=== PATIENT | female | born 1945 | race Caucasian/White ===

== ENCOUNTER 2024-08-06 19:40 | Observation (INO) | payer MEDICARE ==
--- NOTE | 2024-08-06 20:15 | ED ---
General Adult HPI - General Chief complaint: Chest Pain Stated complaint: Chest pain Time Seen by Provider: 08/06/24 19:45 Source: patient, EMS, RN notes reviewed, old records reviewed Mode of arrival: EMS Limitations: no limitations - History of Present Illness Initial comments: This is a 78-year-old female with a past medical history significant for high blood pressure high cholesterol and atrial fibrillation. Patient states she started having chest pain today and thought it was her A-fib acting up even though her heart rate was only 90. Patient states her blood pressure was a little elevated of 150/120 so she took another beta-ty and came to the hospital. Patient states on the way end gave her nitroglycerin and that seemed to help with the pain. Patient states she was very hot when she had the pain but she was not short of breath and she denies radiation of the pain. Patient states she was definitely nauseous and they gave her Zofran on the way in and that helped as well. Patient also was given 4 aspirin. - Related Data Allergies Allergy/AdvReac Type Severity Reaction Status Date / Time amiodarone Allergy Unknown Verified 08/06/24 19:43 azithromycin Allergy Diarrhea Verified 08/06/24 19:43 losartan Allergy Swelling Verified 08/06/24 19:43 Review of Systems ROS Statement: Those systems with pertinent positive or pertinent negative responses have been documented in the HPI. ROS Other: All systems not noted in ROS Statement are negative. Past Medical History Past Medical History: Atrial Fibrillation, Cancer, Hypertension, Thyroid Disorder Additional Past Medical History / Comment(s): UC, right breast CA History of Any Multi-Drug Resistant Organisms: None Reported Past Surgical History: Hysterectomy, Joint Replacement, Orthopedic Surgery Additional Past Surgical History / Comment(s): right breast , lumpectomy Past Psychological History: No Psychological Hx Reported Smoking Status: Former smoker Past Alcohol Use History: Daily Past Drug Use History: None Reported General Exam - General Exam Comments Initial Comments: GENERAL: Patient is well-developed and well-nourished. Patient is nontoxic and well- hydrated and is in mild distress. ENT: Neck is soft and supple. No significant lymphadenopathy is noted. Oropharynx is clear. Moist mucous membranes. Neck has full range of motion without eliciting any pain. EYES: The sclera were anicteric and conjunctiva were pink and moist. Extraocular movements were intact and pupils were equal round and reactive to light. Eyelid s were unremarkable. PULMONARY: Unlabored respirations. Good breath sounds bilaterally. No audible rales rhonchi or wheezing was noted. CARDIOVASCULAR: Patient's heart rates about 75 beats a minute and irregular ABDOMEN: Soft and nontender with normal bowel sounds. SKIN: Skin is clear with no lesions or rashes and otherwise unremarkable. NEUROLOGIC: Patient is alert and oriented x3. Cranial nerves II through XII are grossly intact. Motor and sensory are also intact. Normal speech, volume and content. Symmetrical smile. MUSCULOSKELETAL: Normal extremities with adequate strength and full range of motion. LYMPHATICS: No significant lymphadenopathy is noted PSYCHIATRIC: Normal psychiatric evaluation. Limitations: no limitations Course Vital Signs 08/06/24 08/06/24 08/06/24 19:44 20:35 21:19 Temperature 98.1 F Pulse Rate 94 81 75 Respiratory 18 18 18 Rate Blood Pressure 172/78 166/98 178/104 O2 Sat by Pulse 97 96 95 Oximetry Medical Decision Making - Medical Decision Making EKG is interpreted by myself. EKG shows atrial fibrillation at 84 bpm QRS is 84 QT interval is 377 QTc is 418. Patient's EKG shows no ST segment elevation or depression Was pt. sent in by a medical professional or institution (, PA, HOME AID, urgent care, hospital, or intermediate...) When possible be specific @ -No Did you speak to anyone other than the patient for history (EMS, parent, family, police, friend...)? What history was obtained from this source @ -No Did you review nursing and triage notes (agree or disagree)? Why? @ -I reviewed and agree with nursing and triage notes Were old charts reviewed (outside hosp., previous admission, EMS record, old EKG, old radiological studies, urgent care reports/EKG's, intermediate records)? Report findings @ -No old charts were reviewed Differential Diagnosis? @ -Differential Chest Pain: Stable Angina, Unstable Angina, STEMI, NSTEMI Aortic Dissection, Pneumothorax, Musculoskeletal, Esophageal Spasm GERD, Cholecystitis, Pancreatitis, Zoster, this is not meant to be an all-inclusive list. EKG interpreted by me (3pts min.). @ -As above X-rays interpreted by me (1pt min.). @ -Chest x-ray shows no acute abnormality CT interpreted by me (1pt min.). @ -None done U/S interpreted by me (1pt. min.). @ -None done What testing was considered but not performed or refused? (CT, X-rays, U/S, labs)? Why? @ -None What meds were considered but not given or refused? Why? @ -None Did you discuss the management of the patient with other professionals (professionals i.e. , PA, HOME AID, lab, RT, psych nurse, socially responsible investment adviser, ordnance corps officer, teacher, navy senior officer, rn case manager)? Give summary @ -I spoke with Dr. Perkins and he agreed to admit the patient. Was smoking cessation discussed for >3mins.? @ -No Was critical care preformed (if so, how long)? @ -No Were there social determinants of health that impacted care today? How? (Homelessness, low income, unemployed, alcoholism, drug addiction, t ransportation, low edu. Level, literacy, decrease access to med. care, fci, rehab)? @ -No Was there de-escalation of care discussed even if they declined (Discuss DNR or withdrawal of care, Hospice)? DNR status @ -No What co-morbidities impacted this encounter? (DM, HTN, Smoking, COPD, CAD, Cancer, CVA, ARF, Chemo, Hep., AIDS, mental health diagnosis, sleep apnea, morbid obesity)? @ -None Was patient admitted / discharged? Hospital course, mention meds given and route, prescriptions, significant lab abnormalities, going to OR and other pertinent info. @ -Patient had nitroglycerin en route which helped with her pain considerably. Patient was given Nitropaste here she already had aspirin en route as well. Patient continued be slightly nauseous when she arrived she was given 4 more of Zofran and given Ativan to relax her. Patient was also given her nighttime dose of hydralazine. Patient was feeling considerably better at time of admission I will admit the patient to Dr. Marquez and consult cardiology Undiagnosed new problem with uncertain prognosis? @ -No Drug Therapy requiring intensive monitoring for toxicity (Heparin, Nitro, Insulin, Cardizem)? @ -No Were any procedures done? @ -No Diagnosis/symptom? @ -Chest pain Acute, or Chronic, or Acute on Chronic? @ -Acute Uncomplicated (without systemic symptoms) or Complicated (systemic symptoms)? @ -Complicated Side effects of treatment? @ -No Exacerbation, Progression, or Severe Exacerbation? @ -No Poses a threat to life or bodily function? How? (Chest pain, [place], [place], pneumonia, PE, COPD, DKA, ARF, appy, cholecystitis, CVA, Diverticulitis, Homicidal, Suicidal, threat to staff... and all critical care pts) @ -Yes this could lead to an KS and endorgan dysfunction - Lab Data Result diagrams: 08/06/24 19:55 08/06/24 19:55 Lab Results 08/06/24 08/06/24 08/06/24 Range/Units 19:55 19:55 19:55 WBC 5.98 (4.50-10.00) 10*3/uL RBC 3.92 L (4.10-5.20) 10*6/uL Hgb 12.5 (12.0-15.0) g/dL Hct 36.6 L (37.2-46.3) % MCV 93.4 (80.0-97.0) fL MCH 31.9 (27.0-32.0) pg MCHC 34.2 (32.0-37.0) g/dL Plt Count 224 (140-440) 10*3/uL MPV 9.2 L (9.5-12.2) fL Immature Gran % (Auto) 0.7 % Neutrophils % 58.8 % Lymphocytes % 27.3 % Monocytes % 10.0 % Eosinophils % 2.5 % Basophils % 0.7 % Immature Gran # 0.04 (0.00-0.04) 10*3/uL Neutrophils # 3.52 (1.80-7.70) 10*3/uL Lymphocytes # 1.63 (0.90-5.00) 10*3/uL Monocytes # 0.60 (0.20-1.00) 10*3/uL Eosinophils # 0.15 (0.04-0.35) 10*3/uL Basophils # 0.04 (0.00-0.10) 10*3/uL PT 10.7 (10.0-12.5) sec INR 1.0 (<1.2) APTT 27.4 (22.0-30.0) sec Sodium 139 (137-145) mmol/L Potassium 3.8 (3.5-5.1) mmol/L Chloride 104 (98-107) mmol/L Carbon Dioxide 27 (22-30) mmol/L Anion Gap 8 mmol/L BUN 22 H (7-17) mg/dL Creatinine 0.61 (0.52-1.04) mg/dL Est GFR (CKD-EPI)AfAm >90 (>60 ml/min/1.73 sqM) Est GFR (CKD-EPI)NonAf 87 (>60 ml/min/1.73 sqM) Glucose 155 H (74-99) mg/dL Calcium 9.4 (8.4-10.2) mg/dL Magnesium 1.8 (1.6-2.3) mg/dL Total Bilirubin 0.5 (0.2-1.3) mg/dL AST 29 (14-36) U/L ALT 15 (4-34) U/L Alkaline Phosphatase 78 (38-126) U/L Troponin I (0.000-0.034) ng/mL Total Protein 7.2 (6.3-8.2) g/dL Albumin 4.2 (3.5-5.0) g/dL /07/28 Range/Units 19:55 WBC (4.50-10.00) 10*3/uL RBC (4.10-5.20) 10*6/uL Hgb (12.0-15.0) g/dL Hct (37.2-46.3) % MCV (80.0-97.0) fL MCH (27.0-32.0) pg MCHC (32.0-37.0) g/dL Plt Count (140-440) 10*3/uL MPV (9.5-12.2) fL Immature Gran % (Auto) % Neutrophils % % Lymphocytes % % Monocytes % % Eosinophils % % Basophils % % Immature Gran # (0.00-0.04) 10*3/uL Neutrophils # (1.80-7.70) 10*3/uL Lymphocytes # (0.90-5.00) 10*3/uL Monocytes # (0.20-1.00) 10*3/uL Eosinophils # (0.04-0.35) 10*3/uL Basophils # (0.00-0.10) 10*3/uL PT (10.0-12.5) sec INR (<1.2) APTT (22.0-30.0) sec Sodium (137-145) mmol/L Potassium (3.5-5.1) mmol/L Chloride (98-107) mmol/L Carbon Dioxide (22-30) mmol/L Anion Gap mmol/L BUN (7-17) mg/dL Creatinine (0.52-1.04) mg/dL Est GFR (CKD-EPI)AfAm (>60 ml/min/1.73 sqM) Est GFR (CKD-EPI)NonAf (>60 ml/min/1.73 sqM) Glucose (74-99) mg/dL Calcium (8.4-10.2) mg/dL Magnesium (1.6-2.3) mg/dL Total Bilirubin (0.2-1.3) mg/dL AST (14-36) U/L ALT (4-34) U/L Alkaline Phosphatase (38-126) U/L Troponin I <0.012 (0.000-0.034) ng/mL Total Protein (6.3-8.2) g/dL Albumin (3.5-5.0) g/dL Disposition Clinical Impression: Chest pain Disposition: ADMITTED IP TO THIS HOSP Referrals: Niko Camilo MD [Primary Care Provider] - 1-2 days Time of Disposition: 21:39
[2024-08-06 20:24] LABS: Basophils # (A) 0.04 10*3/uL (0.00-0.10); Basophils % (A) 0.7 %; Eosinophils # (A) 0.15 10*3/uL (0.04-0.35); Eosinophils % (A) 2.5 %; HCT 36.6 % (37.2-46.3); HGB 12.5 g/dL (12.0-15.0); Lymphocytes # (A) 1.63 10*3/uL (0.90-5.00); Lymphocytes % (A) 27.3 %; MCH 31.9 pg (27.0-32.0); MCHC 34.2 g/dL (32.0-37.0); MCV 93.4 fL (80.0-97.0); Mean Platelet Volume 9.2 fL (9.5-12.2); Neutrophils # (A) 3.52 10*3/uL (1.80-7.70); Neutrophils % (A) 58.8 %; Platelet Count 224 10*3/uL (140-440); RBC 3.92 10*6/uL (4.10-5.20); RDW 14.2 % (11.5-14.5); WBC 5.98 10*3/uL (4.50-10.00)
[2024-08-06 20:38] LABS: Partial Thromboplastin Time 27.4 sec (22.0-30.0); Prothrombin Time 10.7 sec (10.0-12.5)
[2024-08-06 20:43] LABS: ALT 15 U/L (4-34); AST 29 U/L (14-36); African American GFR (CKD) >90 (>60 ml/min/1.73 sqM); Albumin 4.2 g/dL (3.5-5.0); Alkaline Phosphatase 78 U/L (38-126); Anion Gap 8 mmol/L; Blood Urea Nitrogen 22 mg/dL (7-17); Calcium 9.4 mg/dL (8.4-10.2); Carbon Dioxide 27 mmol/L (22-30); Chloride 104 mmol/L (98-107); Glucose 155 mg/dL (74-99); Magnesium 1.8 mg/dL (1.6-2.3); Non-African American GFR(CKD) 87 (>60 ml/min/1.73 sqM); Potassium 3.8 mmol/L (3.5-5.1); Sodium 139 mmol/L (137-145); Total Bilirubin 0.5 mg/dL (0.2-1.3); Total Protein 7.2 g/dL (6.3-8.2)
[2024-08-06] MEDS: NITROGLYCERIN OINT 1 INCH/GM PACKET TOPICAL STA (20:43)
--- NOTE | 2024-08-06 21:00 | XR ---
EXAMINATION TYPE: XR chest 2V DATE OF EXAM: 08/06/2024 8:55 PM COMPARISON: None. CLINICAL INDICATION: Female, 78 years old with history of Chest Pain: Shortness of breath TECHNIQUE: XR chest 2V views of the chest are obtained. FINDINGS: Scattered senescent parenchymal changes noted. Hyperinflation compatible with COPD. Scattered interstitial infiltrates. Correlate for developing pneumonia. Heart size is mildly enlarged. Mediastinal structures are stable and grossly unremarkable. No evidence for hilar prominence. Degenerative changes dorsal spine. IMPRESSION: 1. Scattered interstitial infiltrates. Correlate for developing pneumonia. [facility], , 08/06/2024 8:58 PM
[2024-08-06] MEDS: LORazepam 2 MG/ML INJ IV STA (21:33)
[2024-08-06] MEDS: hydrALAZINE HCL 25 MG TAB PO STA (21:35)
[2024-08-06] MEDS ORDERED: NITROGLYCERIN SL TABS 0.4 MG TAB SUBLINGUAL PRN (21:39)
[2024-08-06] MEDS: ZOLPIDEM 5 MG TAB PO SCH (22:34)
[2024-08-06] MEDS: APIXABAN 5 MG TAB PO SCH (22:34)
[2024-08-06] MEDS: METOPROLOL SUCCINATE (ER) 100 MG TAB.ER.24H PO SCH (22:35)
[2024-08-06] MEDS: ACETAMINOPHEN TAB 325 MG TAB PO PRN (23:07)
[2024-08-07] MEDS: NITROGLYCERIN OINT 1 INCH/GM PACKET TOPICAL SCH (03:36)
[2024-08-07] MEDS: ASPIRIN 325 MG TAB PO SCH (08:03)
[2024-08-07] MEDS: hydrALAZINE HCL 25 MG TAB PO SCH (08:04)
[2024-08-07] MEDS: FUROSEMIDE 20 MG TAB PO SCH (08:05)
[2024-08-07] MEDS: METOPROLOL SUCCINATE (ER) 100 MG TAB.ER.24H PO SCH (09:15)
--- NOTE | 2024-08-07 09:41 | XR ---
EXAMINATION TYPE: XR chest 2V DATE OF EXAM: 08/07/2024 9:29 AM COMPARISON: Chest radiographs from 08/06/2024 TECHNIQUE: XR chest 2V Frontal and lateral views of the chest. CLINICAL INDICATION:Female, 78 years old with history of cp, repeat developing pneumonia; FINDINGS: Lungs/Pleura: No pneumothorax or pleural effusion. Similar scattered interstitial opacities. Heart/mediastinum: Cardiomediastinal silhouette is enlarged and stable. Musculoskeletal: No acute osseous pathology. Right shoulder arthroplasty change. Other findings: Surgical clips within the right axilla. IMPRESSION: Cardiomegaly similar scattered interstitial opacities which may represent pulmonary vascular congesti on from CHF exacerbation versus atypical pneumonia. [facility], , 08/07/2024 9:39 AM
--- NOTE | 2024-08-07 10:35 | P.CRDCN ---
History of Present Illness History of present illness: HISTORY OF PRESENTING ILLNESS This is a pleasant 78-year-old female past medical history significant for persistent atrial fibrillation, hypertension and dyslipidemia. She follows in the office with Dr. Quintero. We have been asked to see in consultation for chest pain. She presented to the hospital with symptoms of hypertension at home. She also felt a vague sensation of palpitations and burning. No shortness of breath or dizziness. BP on arrival 172/78. Has remained elevated for the most part. DIAGNOSTICS EKG reveals atrial fibs heart rate of 84. Telemetry tracings indicate atrial fed with mostly controlled ventricular rate. Chest xray multiple interstitial infiltrates noted possibly related to developing pneumonia. Laboratory reviewed, WBC 5.9, hemoglobin 12.5, platelets 224, sodium 139, potassium 3.8, creatinine 0.61, magnesium 1.7, cardiac enzymes negative x 3. Current cardiac medications include Eliquis 80, hydralazine 50 mg 3 times daily, Lasix 20 mg daily and metoprolol succinate 100 mg daily. Most recent echocardiogram obtained in the office May 2024 revealed preserved LV systolic function with ejection fraction 55%, moderate to severe MR and moderate TR with an RVSP of 44. REVIEW OF SYSTEMS At the time of my exam: CONSTITUTIONAL: Denies fever or chills. CARDIOVASCULAR: Denies chest pain, shortness of breath, orthopnea, PND or palpitations. RESPIRATORY: Denies cough. GASTROINTESTINAL: Denies abdominal pain, diarrhea, constipation, nausea or vomiting. MUSCULOSKELETAL: Denies myalgias. NEUROLOGIC: Denies numbness, tingling, headache or weakness. ENDOCRINE: Denies fatigue, weight change, polydipsia or polyurina. GENITOURINARY: Denies burning, hematuria or urgency with micturation. HEMATOLOGIC: Denies history of anemia or bleeding. PHYSICAL EXAMINATION Blood pressure 148/91 heart rate 64 afebrile and maintaining oxygen saturation on room air. CONSTITUTIONAL: No apparent distress. HEENT: Head is normocephalic. Pupils are equal, round. Sclerae anicteric. Mucous membranes of the mouth are moist. No JVD. No carotid bruit. CHEST EXAMINATION: Lungs are clear to auscultation. No chest wall tenderness is noted on palpation or with deep breathing. HEART EXAMINATION: Irregular rate and rhythm. S1, S2 heard. No murmurs, gallops or rub. ABDOMEN: Soft, nontender. EXTREMITIES: 2+ peripheral pulses, no lower extremity edema and no calf tenderness. NEUROLOGIC EXAMINATION: Patient is awake, alert and oriented x3. ASSESSMENT Hypertension Persistent atrial fibrillation Dyslipidemia PLAN Repeat chest xray. An acute coronary event has been ruled out. Add amlodipine 5 mg at bedtime for better blood pressure control. Stable for discharge from a cardiac perspective, follow-up with Dr. Quintero in 2 weeks. Thank you kindly for this consultation. Nurse Practitioner note has been reviewed, I agree with a documented findings and plan of care. Patient was seen and examined. Past Medical History Past Medical History: Atrial Fibrillation, Cancer, Hyperlipidemia, Hypertension, Thyroid Disorder Additional Past Medical History / Comment(s): UC, right breast CA , ulcertive colotis, skin cancer, breast cancer, History of Any Multi-Drug Resistant Organisms: None Reported Past Surgical History: Hysterectomy, Joint Replacement, Orthopedic Surgery Additional Past Surgical History / Comment(s): right breast lumpectomy, lumbar decompression, right shoulder, right knee, Past Psychological History: No Psychological Hx Reported Smoking Status: Former smoker Past Alcohol Use History: Daily Past Drug Use History: None Reported Medications and Allergies Allergies Allergy/AdvReac Type Severity Reaction Status Date / Time amiodarone Allergy Unknown Verified 08/06/24 19:43 azithromycin Allergy Diarrhea Verified 08/06/24 19:43 losartan Allergy Swelling Verified 08/06/24 19:43 corn Allergy Unknown Uncoded 08/07/24 01:11 Physical Exam Vitals: Vital Signs Temp Pulse Pulse Resp BP BP Pulse Ox 08/07/24 07:00 97.9 F 64 17 148/91 97 08/07/24 00:05 97.7 F 75 18 138/76 95 08/06/24 23:00 75 18 138/82 94 L 08/06/24 21:19 75 18 178/104 95 08/06/24 20:35 81 18 166/98 96 08/06/24 19:44 98.1 F 94 18 172/78 97 Intake and Output 08/06/24 08/07/24 08/07/24 22:59 06:59 14:59 Other: # Voids 1 Weight 95.254 kg 95.254 kg Results 08/06/24 19:55 08/06/24 19:55 Cardiac Enzymes 08/06/24 08/06/24 08/07/24 Range/Units 19:55 19:55 00:31 AST 29 (14-36) U/L Troponin I <0.012 <0.012 (0.000-0.034) ng/mL 08/07/24 Range/Units 03:23 AST (14-36) U/L Troponin I <0.012 (0.000-0.034) ng/mL Coagulation 08/06/24 Range/Units 19:55 PT 10.7 (10.0-12.5) sec APTT 27.4 (22.0-30.0) sec CBC 08/06/24 Range/Units 19:55 WBC 5.98 (4.50-10.00) 10*3/uL RBC 3.92 L (4.10-5.20) 10*6/uL Hgb 12.5 (12.0-15.0) g/dL Hct 36.6 L (37.2-46.3) % Plt Count 224 (140-440) 10*3/uL Comprehensive Metabolic Panel 08/06/24 Range/Units 19:55 Sodium 139 (137-145) mmol/L Potassium 3.8 (3.5-5.1) mmol/L Chloride 104 (98-107) mmol/L Carbon Dioxide 27 (22-30) mmol/L BUN 22 H (7-17) mg/dL Creatinine 0.61 (0.52-1.04) mg/dL Glucose 155 H (74-99) mg/dL Calcium 9.4 (8.4-10.2) mg/dL AST 29 (14-36) U/L ALT 15 (4-34) U/L Alkaline Phosphatase 78 (38-126) U/L Total Protein 7.2 (6.3-8.2) g/dL Albumin 4.2 (3.5-5.0) g/dL Current Medications Generic Name Dose Route Start Last Admin Trade Name Freq PRN Reason Stop Dose Admin Acetaminophen 650 mg 08/06/24 22:55 08/07/24 08:03 Acetaminophen Tab 325 Mg Tab PO 650 mg Q6HR PRN Administration Fever and/ or Pain Amlodipine Besylate 5 mg 08/07/24 21:00 Amlodipine 5 Mg Tab PO HS RELL Apixaban 5 mg 08/06/24 21:45 08/07/24 09:02 Apixaban 5 Mg Tab PO 5 mg BID RELL Administration Protocol Furosemide 20 mg 08/08/24 09:00 Furosemide 20 Mg Tab PO DAILY RELL Hydralazine HCl 75 mg 08/07/24 09:00 08/07/24 08:04 Hydralazine Hcl 25 Mg Tab PO 75 mg TID RELL Administration Metoprolol Succinate 100 mg 08/07/24 09:15 Metoprolol Succinate (Er) 100 Mg Tab.Er.24h PO DAILY RELL Nitroglycerin 0.4 mg 08/06/24 21:39 Nitroglycerin Sl Tabs 0.4 Mg Tab SUBLINGUAL Q5M PRN Chest Pain Zolpidem Tartrate 5 mg 08/06/24 22:15 08/06/24 22:34 Zolpidem 5 Mg Tab PO 5 mg HS RELL Administration Intake and Output 08/06/24 08/07/24 08/07/24 22:59 06:59 14:59 Other: # Voids 1 Weight 95.254 kg 95.254 kg 08/06/24 19:55 08/06/24 19:55
[2024-08-07] MEDS: LEVOTHYROXINE 88 MCG TAB PO SCH (11:45)
[2024-08-07] MEDS: BALSALAZIDE DISODIUM 750 MG CAPSULE PO SCH (11:45)
[2024-08-07 15:01] VITALS: BP 146/86; PULSE 66; RESP 18; TEMP 98
[2024-08-07] MEDS ORDERED: amLODIPine 5 MG TAB PO SCH (21:00)
[2024-08-07 21:21] LABS: LDL Cholesterol,Calculated 120.1 mg/dL (0.0-131.0)
[2024-08-08] MEDS ORDERED: FUROSEMIDE 20 MG TAB PO SCH (09:00)
--- NOTE | 2024-10-05 12:28 | P.DS ---
Providers Date of admission: 08/06/24 21:41 Expected date of discharge: 08/07/24 Attending physician: Sere Perkins MD Consults: 08/06/24 21:40 Consult Physician Urgent Consulting Provider: [facility] Consult Reason/Comments: Chest pain Do you want consulting provider notified?: Yes Primary care physician: Niko Camilo Hospital Course: Discharge diagnosis Persistent atrial fibrillation with controlled ventricular response. Uncontrolled hypertension Mild acute CHF with preserved EF. Chest x-ray showed pulmonary vascular congestion from CHF and proBNP level is 1470. Hyperlipidemia Hypothyroidism History of right breast cancer Ulcerative colitis Prior history of smoking and daily alcohol use DVT prophylaxis patient is already on full anticoagulation Hospital course Patient is a 78-year-old female with a past medical history of atrial fibrillation on anticoagulation with apixaban, hypertension, hyperlipidemia, hypothyroidism, history of right breast cancer, ulcerative colitis and prior history of smoking and alcohol use. Patient presents to ER with complaints of chest pain that started today and thought her A-fib is acting up. Heart rate was in 90s while in the ER. Patient also states that her blood pressure is also elevated with the SBP in 150s and she took another dose of beta-ty prior to coming to hospital. Patient was given nitroglycerin sublingual en route to the hospital which seemed to be helping. As per patient. Patient otherwise denied any complaints of shortness of breath. Denied any radiation of the pain. She was nauseated and was also given Zofran on the way to the hospital. She was also given 4 doses of aspirin. EKG showed atrial fibrillation with heart rate of 84. Lab Chest x-ray showed multiple interstitial infiltrates noted poss related to developing pneumonia. Laboratory data showed WBC 5.9 hemoglobin 12.5 and platelets 224 sodium 139 potassium 3.8 chloride 104 bicarb is 27 BUN 2020 creatinine 0.61 and blood sugar is 155 liver enzymes are not el Evated. Magnesium 1.8. Troponin x 3 negative. proBNP 1470 and procalcitonin level is less than 0.2. Repeat chest x-ray showed cardiomegaly similar interstitial opacities which may represent pulmonary vascular congestion from CHF exacerbation versus atypical pneumonia. Patient was continued on telemonitoring. Serial EKG and troponin x 3 negative. Amlodipine 5 mg at bedtime was added for better blood pressure control. Patient was seen by cardiology. Recommends to follow-up with Dr. Quintero in the clinic. Start back on home medications. Patient denied any chest pain currently. Cleared from cardiology standpoint and is being discharged today. Discharge physical examination was done and vitals reviewed. Patient Condition at Discharge: Stable Plan - Discharge Summary Discharge Rx Participant: No New Discharge Prescriptions: New amLODIPine [Norvasc] 5 mg PO HS #30 tab Continue Diphenoxylate HCl/Atropine [Lomotil 2.5-0.025 mg Tablet] 1 tab PO TID PRN PRN Reason: Diarrhea Balsalazide Disodium [Colazal] 750 mg PO BID Metoprolol Succinate [Toprol XL] 50 mg PO DAILY PRN PRN Reason: afib Metoprolol Succinate (ER) [Toprol XL] 100 mg PO DAILY Levothyroxine Sodium [Synthroid] 88 mcg PO DAILY hydrALAZINE HCL [Apresoline] 50 mg PO TID Cholestyramine (with Sugar) [Questran Powder] 4 gm PO DAILY LORazepam [Ativan] 1 mg PO HS PRN PRN Reason: Anxiety Pravastatin Sodium [Pravachol] 10 mg PO DAILY Zolpidem [Ambien] 5 mg PO HS PRN PRN Reason: Insomnia hydrALAZINE HCL 25 mg PO TID Furosemide [Lasix] 20 mg PO DAILY Apixaban [Eliquis] 5 mg PO BID Discharge Medication List Apixaban [Eliquis] 5 mg PO BID 08/07/24 [History] Balsalazide Disodium [Colazal] 750 mg PO BID 08/07/24 [History] Cholestyramine (with Sugar) [Questran Powder] 4 gm PO DAILY 08/07/24 [History] Diphenoxylate HCl/Atropine [Lomotil 2.5-0.025 mg Tablet] 1 tab PO TID PRN 08/07/24 [History] Furosemide [Lasix] 20 mg PO DAILY 08/07/24 [History] LORazepam [Ativan] 1 mg PO HS PRN 08/07/24 [History] Levothyroxine Sodium [Synthroid] 88 mcg PO DAILY 08/07/24 [History] Metoprolol Succinate (ER) [Toprol XL] 100 mg PO DAILY 08/07/24 [History] Metoprolol Succinate [Toprol XL] 50 mg PO DAILY PRN 08/07/24 [History] Pravastatin Sodium [Pravachol] 10 mg PO DAILY 08/07/24 [History] Zolpidem [Ambien] 5 mg PO HS PRN 08/07/24 [History] amLODIPine [Norvasc] 5 mg PO HS #30 tab 08/07/24 [Rx] hydrALAZINE HCL 25 mg PO TID 08/07/24 [History] hydrALAZINE HCL [Apresoline] 50 mg PO TID 08/07/24 [History] Follow up Appointment(s)/Referral(s): Niko Camilo MD [Primary Care Provider] - 1-2 days Montez Quintero MD [STAFF PHYSICIAN] - 2 Weeks Patient Instructions/Handouts: Chest Pain (ED), Chest Pain (DC) Activity/Diet/Wound Care/Special Instructions: follow up as directed, sooner for worsening symptoms, problems, or concerns Discharge Disposition: HOME SELF-CARE
--- NOTE | 2024-10-05 12:29 | P.HPIM ---
History of Present Illness H&P Date: 08/07/24 Chief Complaint: Chest pain Patient is a 78-year-old female with a past medical history of atrial fibrillation on anticoagulation with apixaban, hypertension, hyperlipidemia, hypothyroidism, history of right breast cancer, ulcerative colitis and prior history of smoking and alcohol use. Patient presents to ER with complaints of chest pain that started today and thought her A-fib is acting up. Heart rate was in 90s while in the ER. Patient also states that her blood pressure is also elevated with the SBP in 150s and she took another dose of beta-ty prior to coming to hospital. Patient was given nitroglycerin sublingual en route to the hospital which seemed to be helping. As per patient. Patient otherwise denied any complaints of shortness of breath. Denied any radiation of the pain. She was nauseated and was also given Zofran on the way to the hospital. She was also given 4 doses of aspirin. EKG showed atrial fibrillation with heart rate of 84. Lab Chest x-ray showed multiple interstitial infiltrates noted poss related to developing pneumonia. Laboratory data showed WBC 5.9 hemoglobin 12.5 and platelets 224 sodium 139 potassium 3.8 chloride 104 bicarb is 27 BUN 2020 creatinine 0.61 and blood sugar is 155 liver enzymes are not el Evated. Magnesium 1.8. Troponin x 3 negative. proBNP 1470 and procalcitonin level is less than 0.2. Repeat chest x-ray showed cardiomegaly similar interstitial opacities which may represent pulmonary vascular congestion from CHF exacerbation versus atypical pneumonia. Review of Systems Constitutional: Patient denies any fever or chills . No generalized weakness or weight loss. Abdomen: Patient did have nausea. No episodes of vomiting. Negative for diarrhea and abdominal pain. Cardiovascular: Complains of chest pain. No associated short of breath no palpitations. Respiratory: patient denied any cough or sputum production. No shortness of breath Neurologic: Patient denied any numbness or tingling. no headache. Musculoskeletal: Patient denies any complaints of joint swelling or deformity. Skin: Negative Psychiatric: Negative Endocrine: No heat or cold intolerance. No recent weight gain. Genitourinary: No dysuria or hematuria. All other 14 point ROS negative except the above Past Medical History Past Medical History: Atrial Fibrillation, Cancer, Hyperlipidemia, Hypertension, Thyroid Disorder Additional Past Medical History / Comment(s): UC, right breast CA , ulcertive colotis, skin cancer, breast cancer, History of Any Multi-Drug Resistant Organisms: None Reported Past Surgical History: Hysterectomy, Joint Replacement, Orthopedic Surgery Additional Past Surgical History / Comment(s): right breast lumpectomy, lumbar decompression, right shoulder, right knee, Past Psychological History: No Psychological Hx Reported Smoking Status: Former smoker Past Alcohol Use History: Daily Past Drug Use History: None Reported Medications and Allergies Home Medications Medication Instructions Recorded Confirmed Type Apixaban [Eliquis] 5 mg PO BID 08/07/24 08/07/24 History Balsalazide Disodium [Colazal] 750 mg PO BID 08/07/24 08/07/24 History Cholestyramine (with Sugar) 4 gm PO DAILY 08/07/24 08/07/24 History [Questran Powder] Diphenoxylate HCl/Atropine 1 tab PO TID PRN 08/07/24 08/07/24 History [Lomotil 2.5-0.025 mg Tablet] Furosemide [Lasix] 20 mg PO DAILY 08/07/24 08/07/24 History LORazepam [Ativan] 1 mg PO HS PRN 08/07/24 08/07/24 History Levothyroxine Sodium [Synthroid] 88 mcg PO DAILY 08/07/24 08/07/24 History Metoprolol Succinate (ER) [Toprol 100 mg PO DAILY 08/07/24 08/07/24 History XL] Metoprolol Succinate [Toprol XL] 50 mg PO DAILY PRN 08/07/24 08/07/24 History Pravastatin Sodium [Pravachol] 10 mg PO DAILY 08/07/24 08/07/24 History Zolpidem [Ambien] 5 mg PO HS PRN 08/07/24 08/07/24 History amLODIPine [Norvasc] 5 mg PO HS #30 tab 08/07/24 Rx hydrALAZINE HCL 25 mg PO TID 08/07/24 08/07/24 History hydrALAZINE HCL [Apresoline] 50 mg PO TID 08/07/24 08/07/24 History Allergies Allergy/AdvReac Type Severity Reaction Status Date / Time amiodarone Allergy Unknown Verified 08/07/24 10:51 corn Allergy Unknown Verified 08/07/24 10:51 losartan Allergy Swelling Verified 08/07/24 10:51 azithromycin AdvReac Diarrhea Verified 08/07/24 10:51 paroxetine [From Paxil] AdvReac Diarrhea Verified 08/07/24 10:51 Physical Exam Vitals: Vital Signs Temp Pulse Pulse Resp BP BP Pulse Ox 08/07/24 08:04 17 08/07/24 07:00 97.9 F 64 17 148/91 97 08/07/24 00:05 97.7 F 75 18 138/76 95 08/06/24 23:00 75 18 138/82 94 L 08/06/24 21:19 75 18 178/104 95 08/06/24 20:35 81 18 166/98 96 08/06/24 19:44 98.1 F 94 18 172/78 97 Intake and Output 08/06/24 08/07/24 08/07/24 22:59 06:59 14:59 Other: Voiding Method Toilet # Voids 1 Weight 95.254 kg 95.254 kg PHYSICAL EXAMINATION: Patient is lying in the bed comfortably, no acute distress, awake alert and oriented.. HEENT: Normocephalic. Neck is supple. Pupils reactive. Nostrils clear. Oral cavity is moist. Neck reveals no JVD, carotid bruits, or thyromegaly. CHEST EXAMINATION: Trachea is central. Symmetrical expansion. Lung [place] clear to auscultation and percussion. CARDIAC: Normal S1, S2 with no gallops. No murmurs, irregular rhythm. ABDOMEN: Soft. Bowel sounds normal. No organomegaly. No abdominal bruits. Extremities: reveal no edema. No clubbing or cyanosis Neurologically awake, alert, oriented x3 with well-coordinated movements. No fo jenniffer deficits noted Skin: No rash or skin lesions. Psychiatric: Coperative. Nonsuicidal Musculoskeletal: No joint swelling or deformity. Normal range of motion. Results CBC & Chem 7: 08/06/24 19:55 08/06/24 19:55 Labs: Abnormal Lab Results - Last 24 Hours (Table) 08/06/24 08/06/24 Range/Units 19:55 19:55 RBC 3.92 L (4.10-5.20) 10*6/uL Hct 36.6 L (37.2-46.3) % MPV 9.2 L (9.5-12.2) fL BUN 22 H (7-17) mg/dL Glucose 155 H (74-99) mg/dL Thrombosis Risk Factor Assmnt - DVT/VTE Prophylaxis DVT/VTE Prophylaxis: Pharmacologic Prophylaxis ordered Assessment and Plan Assessment: Persistent atrial fibrillation with controlled ventricular response. Uncontrolled hypertension Mild acute CHF with preserved EF. Chest x-ray showed pulmonary vascular congestion from CHF and proBNP level is 1470. Hyperlipidemia Hypothyroidism History of right breast cancer Ulcerative colitis Prior history of smoking and daily alcohol use DVT prophylaxis patient is already on full anticoagulation Plan: Patient will be continued on telemonitoring. Serial EKG and troponin x 3 negative. Amlodipine 5 mg at bedtime was added for better blood pressure control. Patient was seen by cardiology. Recommends to follow-up with Dr. Quintero in the clinic. Start back on home medications. Patient denied any chest pain currently. Time with Patient: Greater than 30
== END 2024-08-07 16:24 | disposition home or self-care (01) ==
LOC: EC 19:40 → 6NMEDSUR 21:41
PROVIDERS: ADMIT Internal Medicine; ATTEND Internal Medicine
DX: I48.19 Other persistent atrial fibrillation (principal); I11.0 Hypertensive heart disease with heart failure; I50.31 Acute diastolic (congestive) heart failure; I10 Essential (primary) hypertension; I08.1 Rheumatic disorders of both mitral and tricuspid valves; E78.00 Pure hypercholesterolemia, unspecified; E03.9 Hypothyroidism, unspecified; K51.90 Ulcerative colitis, unspecified, without complications; R91.8 Other nonspecific abnormal finding of lung field; Z79.01 Long term (current) use of anticoagulants; Z79.890 Hormone replacement therapy; Z79.899 Other long term (current) drug therapy; Z88.1 Allergy status to other antibiotic agents; Z88.8 Allergy status to other drugs, medicaments and biological substances; Z91.018 Allergy to other foods; Z85.3 Personal history of malignant neoplasm of breast; Z87.891 Personal history of nicotine dependence; Z87.898 Personal history of other specified conditions
CPT/HCPCS: 96374; 99285; 36415; 93005; 83880; 80061; 80053; 83735; 84484 ×2; 85025; 85610; 85730; 84145; 71046 ×2; G0378 ×4; J2060